=== PATIENT | male | born 1955 | race Caucasian/White ===

== ENCOUNTER 2017-02-26 14:30 | Emergency (ER) | payer MEDICAID ==
[2017-02-26] MEDS ORDERED: Metoprolol Tartrate 25 MG Tab PO ONE (15:03)
[2017-02-26] MEDS ORDERED: Adenosine 12 MG/4 ML SDV IVPUSH ONE (15:20)
[2017-02-26] MEDS ORDERED: Diltiazem 50 MG/10 ML SDV IVPUSH ONE (15:26)
[2017-02-26] MEDS: Sodium Chloride 0.9% 1,000 ML IV SCH ×2 (15:32→18:24)
[2017-02-26] MEDS ORDERED: Aspirin 81 MG Tab.Chew PO ONE (16:26)
[2017-02-26] MEDS ORDERED: Heparin Sodium/D5W 25,000 UNITS/500 ML BAG IV SCH (16:45)
[2017-02-26] MEDS ORDERED: Calcium Gluconate 10% 1 GM/10 ML SDV IVPUSH ONE (16:49)
[2017-02-26] MEDS ORDERED: Albuterol 0.083% 2.5 MG/3 ML Neb Soln NEB ONE (16:51)
[2017-02-26] MEDS ORDERED: Insulin Regular, Human 10 UNIT in Dextrose 10% in Water 499.9 ML SUBCUT SCH ×2 (17:00)
[2017-02-26] MEDS ORDERED: Sodium Polystyrene Sulfonate 15 GM/60 ML Susp 473 ML Bottle ONE (17:15)
--- NOTE | 2017-02-26 17:32 | EDM.PDOC ---
ED HPI GENERAL MEDICAL PROBLEM - General Chief Complaint: Respiratory Problem Stated Complaint: SOB Time Seen by Provider: 02/26/17 16:00 Source of Information: Reports: Patient, RN Notes Reviewed History Limitations: Reports: Respiratory Distress - History of Present Illness INITIAL COMMENTS - FREE TEXT/NARRATIVE: This is a 61yo M brought in by EMS for sob. He states he has been sob for over 3 weeks and noticed that it worsened the past week. He is unable to walk very far without getting too winded. He denies any chest pain and has not been in to see any doctors for a long time. He has no medical conditions and no prior heart or lung issues. He has b/l swelling of the legs that has been chronic the past 6-8 months or longer. He does not take any medications. Onset: Gradual Duration: Week(s):, Getting Worse Severity: Severe Improves with: Reports: None Worsens with: Reports: Movement Associated Symptoms: Reports: Shortness of Breath - Related Data Allergies Allergy/AdvReac Type Severity Reaction Status Date / Time No Known Allergies Allergy Verified 02/26/17 16:56 Home Meds: Home Meds NK [No Known Home Meds] 02/26/17 [History] Past Medical History - Past Health History Medical/Surgical History: Denies Medical/Surgical History Social & Family History - Tobacco Use Smoking Status *Q: Never Smoker - Recreational Drug Use Recreational Drug Use: No ED ROS GENERAL - Review of Systems Review Of Systems: ROS reveals no pertinent complaints other than HPI. ED EXAM, GENERAL - Physical Exam Exam: See Below Exam Limited By: Respiratory Distress General Appearance: Alert, WD/WN, Moderate Distress Eye Exam: Bilateral Eye: EOMI, PERRL Ears: Normal External Exam Nose: Normal Inspection Throat/Mouth: Normal Inspection Head: Atraumatic, Normocephalic Neck: Normal Inspection Respiratory/Chest: Lungs Clear, Normal Breath Sounds, No Accessory Muscle Use, Rhonchi Cardiovascular: Tachycardia, Irregularly Irregular GI/Abdominal: Non-Tender, Abnormal Bowel Sounds (decreased Bowel sounds) Back Exam: Normal Inspection, Full Range of Motion Extremities: Pedal Edema, Other (enlarged b/l legs weeping and crusted) Neurological: Alert, Oriented, CN II-XII Intact Skin Exam: Dry, Intact, Other (b/l lower extremity dryness cracking and odor from weeping and oozing) Course - Vital Signs Last Recorded V/S: Last Vital Signs Temp Pulse 184 H 02/26/17 16:26 Resp BP 110/71 02/26/17 16:26 Pulse Ox - Orders/Labs/Meds Labs: Laboratory Tests 02/26/17 02/26/17 02/26/17 Range/Units 15:35 15:35 15:35 WBC 12.4 H (4.0-11.0) K/uL RBC 5.29 (4.50-6.50) M/uL Hgb 15.9 (13.0-18.0) g/dL Hct 48.2 (40.0-54.0) % MCV 91 (76-96) fL MCH 30.1 (27.0-32.0) pg MCHC 33.0 (31.0-35.0) g/dL RDW 16.1 H (11.0-16.0) % Plt Count 187 (150-400) K/uL MPV 11.9 H (6.0-10.0) fL Neut % (Auto) 78.8 H (45.0-70.0) % Lymph % (Auto) 14.6 L (20.0-40.0) % Louisa % (Auto) 6.2 (3.0-10.0) % Eos % (Auto) 0.2 L (1.0-5.0) % Baso % (Auto) 0.2 (0.0-0.5) % Neut # (Auto) 9.74 H (2.00-7.50) K/uL Lymph # (Auto) 1.81 (1.50-4.00) K/uL Louisa # (Auto) 0.77 (0.20-0.80) K/uL Eos # (Auto) 0.02 L (0.04-0.40) K/uL Baso # (Auto) 0.02 (0.02-0.10) K/uL D-Dimer, Quantitative 3740 H (0-400) ng/mL Sodium 137 (136-145) mmol/L Potassium 6.5 H* (3.5-5.1) mmol/L Chloride 111 H (98-107) mmol/L Carbon Dioxide 13.0 L* (21.0-32.0) mmol/L Anion Gap 19.5 H (5.0-15.0) mmol/L BUN 52 H* (8-26) mg/dL Creatinine 2.20 H (0.70-1.30) mg/dL Est Cr Clr Drug Dosing TNP Estimated GFR (MDRD) 30 L (>60) MLS/MIN BUN/Creatinine Ratio 23.6 (6-25) Glucose 170 H (74-100) mg/dL Calcium 9.7 (8.5-10.1) mg/dL Total Bilirubin 1.5 H (0.0-1.0) mg/dL AST 23 (15-37) U/L ALT 26 (12-78) U/L Alkaline Phosphatase 168 H (46-116) U/L Troponin I < 0.017 (0.000-0.060) ng/mL B-Natriuretic Peptide 63924 H (0-125) pg/mL Total Protein 8.2 (6.4-8.2) g/dL Albumin 2.9 L (3.4-5.0) g/dL Globulin 5.3 H (2.2-4.2) g/dL Albumin/Globulin Ratio 0.6 L (0.8-2.0) TSH, Ultra Sensitive 6.441 H (0.358-3.740) uIU/mL Meds: Medications Discontinued Medications Generic Name Dose Route Start Last Admin Trade Name Petra PRN Reason Stop Dose Admin Adenosine 6 mg 02/26/17 15:20 02/26/17 15:20 Adenocard IVPUSH 02/26/17 15:21 6 mg NOW ONE Administration Albuterol 2.5 mg 02/26/17 16:51 02/26/17 16:51 Proventil Neb Soln NEB 02/26/17 16:52 2.5 mg ONETIME ONE Administration Aspirin 324 mg 02/26/17 16:26 02/26/17 16:26 Aspirin PO 02/26/17 16:27 324 mg ONETIME ONE Administration Calcium Gluconate 1 gm 02/26/17 16:49 02/26/17 17:26 Calcium Gluconate IVPUSH 02/26/17 16:50 1 gm ONETIME ONE Administration Dextrose/Water 50 ml 02/26/17 18:50 02/26/17 18:58 Dextrose 50% In Water IVPUSH 02/26/17 18:51 50 ml ONETIME ONE Administration Diltiazem HCl 45 mg 02/26/17 15:26 02/26/17 16:26 Cardizem IVPUSH 02/26/17 15:27 45 mg ONETIME ONE Administration Heparin Sodium (Porcine) 5,000 units 02/26/17 17:48 02/26/17 17:48 Heparin Sodium IVPUSH 02/26/17 17:49 5,000 units ONETIME ONE Administration Heparin Sodium/Dextrose 25,000 units in 500 mls @ 66.96 mls/hr 02/26/17 16:45 02/26/17 18:39 Heparin 25,000 Units In D5w 500 Ml IV 18 units/kg/hr TITRATE DIDI 66.96 mls/hr Protocol Administration 18 UNITS/KG/HR Sodium Chloride 1,000 mls @ 999 mls/hr 02/26/17 15:31 02/26/17 18:24 Normal Saline IV 500 mls/hr ASDIRECTED DIDI Administration Insulin Human Regular 10 unit 02/26/17 18:51 02/26/17 20:36 Humulin R IVPUSH 02/26/17 18:52 10 unit ONETIME ONE Administration Protocol Metoprolol Tartrate 25 mg 02/26/17 15:03 02/26/17 15:03 Lopressor PO 02/26/17 15:04 25 mg ONETIME ONE Administration Sodium Chloride 1,000 ml 02/26/17 18:45 Normal Saline .ROUTE 02/26/17 18:46 .STK-MED ONE Sodium Polystyrene Sulfonate Confirm 02/26/17 17:15 02/26/17 18:26 Kayexalate Administered 02/26/17 17:16 Not Given Dose 15 gm .ROUTE .STK-MED ONE Sodium Polystyrene Sulfonate 15 gm 02/26/17 18:48 02/26/17 18:25 Kayexalate PO 02/26/17 18:49 15 gm ONETIME ONE Administration - Re-Assessments/Exams Free Text/Narrative Re-Assessment/Exam: Patient on telemetry showing rate of 180-200 - adenosine 6mg push with no change. Then gave cardizem push 0.25mg/kg with resolution and rate control in the 80-100. Patient did feel light-headed a few minutes after this dose and BP appeared to drop. Bolus of NS restarted and improvement in BP seen. Difficulty in obtaining IV - only IV access after multiple attempts is the right arm pit. Labs reviewed showing elevated D-dimer - started heparin protocol - unable to do CT with IV site and gauge. Unable to obtain better IV site. Hyperkalemia - started on albuterol neb, insulin drip with dextrose ordered, Calcium gluconate ordered, kayexelate ordered. CXR ordered. Discussed with Dr. Reed plan of care if CXR does not show pulmonary congestion for fluid bolus and resuscitation during travel to [place]. Dr. Reed accepted into ICU #3. CXR does not show pulmonary congestion - we will continue another fluid bolus. Will have to obtain another access - Intra-osseous will be likely the best option at this time. Will debt and budget counselor and discuss with patient. Departure - Departure Time of Disposition: 19:25 Disposition: DC/Tfer to [facility] 02 Condition: Serious Clinical Impression: Acute hyperkalemia, Shortness of breath, Atrial fibrillation with RVR, Bilateral leg edema Pulmonary embolism Qualifiers: Pulmonary embolism type: other Chronicity: acute Acute cor pulmonale presence: without acute cor pulmonale Qualified Code(s): I26.99 - Other pulmonary embolism without acute cor pulmonale - Discharge Information Referrals: PCP,None [Primary Care Provider] - Forms: ED Department Discharge - Problem List & Annotations (1) Acute hyperkalemia SNOMED Code(s): 3250524 Code(s): E87.5 - HYPERKALEMIA Status: Acute (2) Atrial fibrillation with RVR SNOMED Code(s): 812364717009328 Code(s): I48.91 - UNSPECIFIED ATRIAL FIBRILLATION Status: Acute (3) Bilateral leg edema SNOMED Code(s): 414817077, 522216904 Code(s): R60.0 - LOCALIZED EDEMA Status: Acute (4) Pulmonary embolism SNOMED Code(s): 58731058 Code(s): I26.99 - OTHER PULMONARY EMBOLISM WITHOUT ACUTE COR PULMONALE Status: Acute Qualifiers: Pulmonary embolism type: other Chronicity: acute Acute cor pulmonale presence: without acute cor pulmonale Qualified Code(s): I26.99 - Other pulmonary embolism without acute cor pulmonale (5) Shortness of breath SNOMED Code(s): 357378543 Code(s): R06.02 - SHORTNESS OF BREATH Status: Acute - Problem List Review Problem List Initiated/Reviewed/Updated: Yes - Assessment/Plan Plan: Fixed wing arranged pending transfer. Signed out to Lebron Rogers who will await transfer. Insulin drip pending. Fluids started. Heparin drip started.
[2017-02-26] MEDS ORDERED: Heparin Sodium 5,000 UNITS/0.5 ML Syringe IVPUSH ONE (17:48)
[2017-02-26] MEDS ORDERED: Sodium Polystyrene Sulfonate 15 GM/60 ML Susp 60 ML Bot PO ONE (18:48)
[2017-02-26] MEDS ORDERED: 50% Dextrose in Water 50 ML Syringe IVPUSH ONE (18:50)
[2017-02-26] MEDS ORDERED: Insulin Regular, Human 100 Units/ML 3 ML Vial IVPUSH ONE (18:51)
--- NOTE | 2017-02-27 01:28 | ER ---
HPI: A 61-year-old male who came into the emergency room earlier this afternoon by ambulance with shortness of breath. I came on duty at 6:[address] Pedro signed the patient off to me. Arrangements had already been made for transfer via fixed-wing aircraft, was about 30 minutes out as of 6:30. The patient was diagnosed with a possible large PE and atrial fibrillation, new onset. He had been given Cardizem which controlled his heart rate. When I came on, decisions were being made about treating hyperkalemia. I did consult with the on- call [place] doctor, who suggested we try insulin regular 10 units IV followed with D50 and monitor the patient to see if how he tolerates this. About 7 p.m., the [facility] showed up and the patient was transferred out at 7:25. His pulse remained stable. O2 sats fluctuated during the time I monitored the patient. He was on high-flow O2 per mask. The patient did complain of some pain at the IO site in his left lower leg and stated that his breathing was uncomfortable. No chest pain at this time. Again, he left our facility at about 7:25 p.m. GUSTAVO/KAREN /[id number] MILKA
--- NOTE | 2017-02-27 16:00 | CR ---
DATE OF SERVICE: 02/26/17 CLINICAL DATA: sob AP PORTABLE CHEST No priors. Both costophrenic angles are cut off. The heart appears mildly enlarged. The proximal pulmonary arteries appear mildly prominent suggesting the possibility of pulmonary hypertension. The visualized lungs are clear. No pneumothorax. No pleural effusions. No other significant findings. [id number] MTDD
== END 2017-02-26 19:30 ==
LOC: LB.ED 14:30
DX: I26.99 Other pulmonary embolism without acute cor pulmonale (principal); E87.5 Hyperkalemia; I48.91 Unspecified atrial fibrillation; R60.0 Localized edema
CPT/HCPCS: 36415; 71010; 80053; 83880; 84443; 84484; 85025; 85379; 93005; 96361; 96374; 96375; 96376; 99285; A0425; A0429; A9270; J0153; J0610; J1644; J7040; 36680; 96360; J3490